=== PATIENT | female | born 1965 ===

== ENCOUNTER 2021-04-29 04:55 | Day surgery (SDC) | payer OTHER ==
[~2021-04-29 04:55] MED LIST: FLEXERIL; NEURAPTINE30 GM
== END 2021-04-29 12:25 | disposition home or self-care (01) ==
LOC: CIR.AMB 04:55
PROVIDERS: ATTEND Specialist
DX: K42.9 Umbilical hernia without obstruction or gangrene (principal); K80.10 Calculus of gallbladder with chronic cholecystitis without obstruction; Z20.822 Contact with and (suspected) exposure to COVID-19